=== PATIENT | female | born 1965 | race Caucasian/White ===

== ENCOUNTER → 2017-05-02 | Outpatient (CLI) | payer OTHER ==
--- NOTE | 2017-05-02 20:10 | Diagnostic Imaging Report ---
Bilateral diagnostic mammogram with tomography. The current study was also evaluated with a Computer Aided Detection (CAD) system. No prior studies are available for comparison. INDICATION: Bilateral lumps in the axillary regions. FINDINGS: The breasts are composed of scattered fibroglandular densities, slightly more dense in the outer aspect of each breast. Scattered benign-appearing punctate calcifications are noted. No mass, architectural distortion or suspicious cluster of calcifications seen. In the left axilla, there is a minimally prominent nonspecific lymph node, however, noted. IMPRESSION: Suggestion of a nonspecific minimally prominent lymph node in the left axilla. Ultrasound evaluation of bilateral axilla regions for palpable lumps is pending. ACR BI-RADS Category 0: Incomplete. (Needs additional imaging evaluation). Result letter will be mailed to the patient. Note: At least 10% of breast cancer is not imaged by mammography. Dictated by: Dictated on workstation # [id number]
--- NOTE | 2017-05-02 20:38 | Diagnostic Imaging Report ---
EXAM: Bilateral breast ultrasound. INDICATION: Bilateral axillary lump. FINDINGS: The areas of the axillae were scanned bilaterally. On the left side, there is a lymph node measuring 1.8 cm with preserved fatty hilum likely matching the finding on mammography. No other lymph node is seen on the left side or suspicious lesion. The right axilla area demonstrates no definite abnormality. IMPRESSION: No suspicious abnormality. Slightly prominent benign-appearing lymph node in the left axilla. Clinical followup of the lumpy areas is recommended. BI-RADS 2. ACR BI-RADS Category 2: Benign findings. Result letter will be mailed to the patient. Note: At least 10% of breast cancer is not imaged by mammography. Dictated by: Dictated on workstation # [id number]
== END ==
LOC: RAD 12:26
PROVIDERS: ATTEND Nurse Practitioner Family
DX: R59.0 Localized enlarged lymph nodes (principal)
CPT/HCPCS: 76642; 77066